=== PATIENT | female | born 1960 | race Caucasian/White ===

== ENCOUNTER → 2021-03-27 | Outpatient (CLI) | payer BC ==
[~2021-03-27] MED LIST: AMLO1TAB95 PO
--- NOTE | 2021-03-28 08:46 | RAD ---
EXAM: BILATERAL DIGITAL 3D SCREENING MAMMOGRAPHY. HISTORY: Routine mammographic screening. TECHNIQUE: Bilateral digital 3D and tomographic images were obtained in CC and MLO projections. Compu ter-aided detection was applied. COMPARISON: None available. This is interpreted as a baseline study. COMPOSITION: A. The breasts are almost entirely fatty. FINDINGS: There are multiple small circumscribed masses bilaterally. The largest is at the left regar d position and measures 12 x 7 mm. Another medially on the left measures 5 mm and is likely inferior. Others laterally bilaterally are likely benign intramammary lymph nodes. Scattered calcifications ap pear benign. BI-RADS CATEGORY 0: Incomplete--Needs Additional Imaging Evaluation. RECOMMENDATION: 1. Ultrasound of the right lateral breast to assess multiple small nodules at the patient's [facility]. 2. Ultrasound of the left lateral and inferomedial breast also to assess multiple small nodules. Electronically signed by: Chandler Burns MD (03/28/2021 8:43 AM) [id number]
== END ==
LOC: MAMMO 15:20
PROVIDERS: ATTEND Family Medicine
DX: Z12.31 Encounter for screening mammogram for malignant neoplasm of breast (principal); N63.20 Unspecified lump in the left breast, unspecified quadrant; N63.10 Unspecified lump in the right breast, unspecified quadrant
CPT/HCPCS: 77063; 77067